=== PATIENT | female | born 1975 | race Caucasian/White ===

== ENCOUNTER 2017-02-20 08:15 | Emergency (ER) | payer BC ==
[~2017-02-20 08:15] MED LIST: CYANO1000T PO; HYCET 7.5 MG-3473 ML PO; MULTI-VIT HP OR; MULTIPLE VIT PO; NATAZIA PO; OS500+D PO; PEPCID40 MG PO; PHENERGAN25 MG/ML PO/LIQ; PRILOSEC OTC20 MG PO; VITAMIN B-122500 MCG SL
[2017-02-20 09:08] LABS: BASOPHILS 0.2 %; BASOPHILS ABSOLUTE 0.02 10/3/uL (0.0-0.16); EOSINOPHILS ABSOLUTE 0.08 10/3/uL (0.0-0.53); HEMATOCRIT 36.2 % (36.0-48.0); HEMOGLOBIN 11.9 g/dL (12.0-16.0); IMMATURE GRANULOCYTES 0.5 %; IMMATURE GRANULOCYTES ABSOLUTE 0.04 10/3/uL (0.0-0.11); LYMPHOCYTES 29.8 %; LYMPHOCYTES ABSOLUTE 2.48 10/3/uL (0.67-4.30); MEAN CORPUS HGB CONC 32.9 g/dL (32.0-36.0); MEAN CORPUSCULAR VOLUME 82.3 fL (80-100); MEAN PLATELET VOLUME 10.3 fL (9.2-13.0); MONOCYTES ABSOLUTE 0.67 10/3/uL (0.21-1.20); NEUTROPHILS 60.5 %; NEUTROPHILS ABSOLUTE 5.04 10/3/uL (2.02-8.40); PLATELET COUNT 261 10/3/uL (150-400); RBC DISTRIBUTION WIDTH 15.5 % (12.0-16.0); WHITE BLOOD CELLS 8.3 10/3/uL (4.5-10.5)
[2017-02-20 09:11] LABS: MANUAL DIFF NO %
[2017-02-20 09:16] LABS: INTERNATIONAL NORMAL RATI 1.1 UNITS (-)
[2017-02-20 09:17] LABS: PARTIAL THROMBO TIME 29.9 SEC (22.5-37.2)
[2017-02-20 09:25] LABS: BUN (BLOOD UREA NITROGEN) 9 MG/DL (6-23); CHEST PAIN PROFILE TAT 0 Hrs 23 Mins; CHLORIDE, SERUM 107 MMOL/L (96-112); CO2 (CARBON DIOXIDE) 29 MMOL/L (24-34); CREATININE 0.65 MG/DL (0.55-1.02); GFR AFRICAN AMERICAN 129 ML/MIN (>=60); GFR NON AFRICAN AMERICAN 111 ML/MIN (>=60); POTASSIUM, SERUM 3.6 MMOL/L (3.5-5.3); SODIUM, SERUM 142 MMOL/L (135-148); TROPONIN I <0.02 NG/ML (<0.05)
[2017-02-20 09:27] LABS: GLUCOSE, SERUM 73 MG/DL (60-99)
[2017-02-20 09:28] LABS: D-DIMER QUANTITATIVE 0.41 ug/mLFEU (< 0.50)
== END 2017-02-20 13:45 | disposition home or self-care (01) ==
LOC: ER 08:15
PROVIDERS: Student in an Organized Health Care Education/Training Program
DX: R07.89 Other chest pain (principal); Z79.899 Other long term (current) drug therapy
CPT/HCPCS: 71010; 80048; 83735; 84484; 84703; 85025; 85379; 85610; 85730; 93005; 99285